=== PATIENT | male | born 1945 | race Caucasian/White ===

== ENCOUNTER 2016-07-28 14:04 | Day surgery (SDC) | payer OTHER ==
--- NOTE | ~2016-07-28 | EGD ---
EGD REPORT [facility] [address] [address] NAME: EVIN BERMAN JUNIOR : [birth year] STATUS : REG [facility] [place] PAT#: [id number] AGE: 71 ADM/REG DATE : 07/28/16 MR#: [id number] REPORT SERV DATE: 07/28/16 DICTATED BY: GEMA SUAREZ DATE: 07/28/16 REPORT STATUS : Draft TRANSCRIBED BY: [facility] DATE: 07/28/16 Endoscopy Center Patient Name: Evin Berman Junior Date of : 1945 Attending MD: GEMA SAUREZ MD Procedure Date No Time: 07/28/2016 Procedure: Upper GI endoscopy Indications: Surveillance procedure, Personal history of malignant esophageal neoplasm Referring MD: SILVANA MORALEZ MD, AYAAN FERNANDEZ III, MD Medicines: Propofol per Anesthesia Complications: No immediate complications. Procedure: Pre-Anesthesia Assessment: - ASA Grade Assessment: III - A patient with severe systemic disease. After obtaining informed consent, the endoscope was passed under direct vision. Throughout the procedure, the patient's blood pressure, pulse, and oxygen saturations were monitored continuously. The GIF H190 [id number] was introduced through the mouth, and advanced to the second part of duodenum. The upper GI endoscopy was accomplished without difficulty. The patient tolerated the procedure well. Findings: An esophago-gastric anastomosis was found at 31 cm from the incisors. The anastomosis is healthy in appearance. Evidence of a gastric pull-up were found in the cardia. The anastomosis was characterized by healthy appearing mucosa and an intact staple line. The examined duodenum was normal. Impression: - An esophago-gastric anastomosis was found. - A gastric pull-up were found, anastomosis characterized by healthy appearing mucosa and an intact staple line. - Normal examined duodenum. Recommendation: - Continue omeprazole. Procedure Code(s): --- Professional --- 24487, Esophagogastroduodenoscopy, flexible, transoral; diagnostic, including collection of specimen(s) by brushing or washing, when performed (separate procedure) Diagnosis Code(s): --- Professional --- EGD REPORT [facility] [address] [address] NAME: EVIN BERMAN JUNIOR : [birth year] STATUS : REG [facility] PAT#: [id number] AGE: 71 ADM/REG DATE : 07/28/16 MR#: [id number] REPORT SERV DATE: 07/28/16 DICTATED BY: GEMA SUAREZ. DATE: 07/28/16 REPORT STATUS : Draft TRANSCRIBED BY: [employer] DATE: 07/28/16 Z98.0, Intestinal bypass and anastomosis status Z85.01, Personal history of malignant neoplasm of esophagus CPT copyright 2013 [employer]. All rights reserved. The codes documented in this report are preliminary and upon auditing coder review may be revised to meet current compliance requirements. GEMA SUAREZ MD 07/28/2016 3:45 PM This report has been signed electronically. Number of Addenda: 0 Note Initiated On: 07/28/2016 3:22 PM Scope Withdrawal Time 0 hours 0 minutes 0 seconds [address] [place] [address]
--- NOTE | ~2016-07-28 | EGD ---
EGD REPORT [facility] [address] [address] NAME: EVIN BERMAN JUNIOR : [birth year] [place] [facility] [place]#: [id number] AGE: 71 ADM/REG DATE : 07/28/16 MR#: [id number] REPORT SERV DATE: 07/28/16 DICTATED BY: GEMA SUAREZ DATE: 07/28/16 REPORT STATUS : Draft TRANSCRIBED BY: [facility] DATE: 07/28/16 Endoscopy Center Patient Name: Evin Berman Junior Date of : 1945 Attending MD: GEMA SUAREZ MD Procedure Date No Time: 07/28/2016 Procedure: Colonoscopy Indications: High risk colon CA surveillance: Personal history multiple (3 or more) adenomas Referring MD: SILVANA MORALEZ MD Medicines: Propofol per Anesthesia Complications: No immediate complications. Procedure: Pre-Anesthesia Assessment: - ASA Grade Assessment: III - A patient with severe systemic disease. After I obtained informed consent, the scope was passed under direct vision. Throughout the procedure, the patient's blood pressure, pulse, and oxygen saturations were monitored continuously. The [facility] [id number] was introduced through the anus and advanced to the cecum, identified by appendiceal orifice and ileocecal valve. The colonoscopy was performed without difficulty. The patient tolerated the procedure well. The quality of the bowel preparation was adequate. Findings: The perianal and digital rectal examinations were normal. Internal hemorrhoids were found during retroflexion and were Grade I (internal hemorrhoids that do not prolapse). The exam was otherwise without abnormality. Impression: - Internal hemorrhoids. - The examination was otherwise normal. Recommendation: - Patient has a contact number available for emergencies. The signs and symptoms of potential delayed complications were discussed with the patient. Return to normal activities tomorrow. Written discharge instructions were provided to the patient. - Regular diet. - Continue present medications. - Repeat colonoscopy in 5 years for surveillance. Procedure Code(s): --- Professional --- 04558, Colonoscopy, flexible, proximal to splenic EGD REPORT [facility] [address] [place] [address] NAME: EVIN BERMAN JUNIOR : [birth year] STATUS : REG [facility]#: [id number] AGE: 71 ADM/REG DATE : 07/28/16 MR#: [id number] REPORT SERV DATE: 07/28/16 DICTATED BY: GEMA SUAREZ. DATE: 07/28/16 REPORT STATUS : Draft TRANSCRIBED BY: [employer] DATE: 07/28/16 flexure; diagnostic, with or without collection of specimen(s) by brushing or washing, with or without colon decompression (separate procedure) Diagnosis Code(s): --- Professional --- K64.0, First degree hemorrhoids Z86.010, Personal history of colonic polyps CPT copyright 2013 [employer]. All rights reserved. The codes documented in this report are preliminary and upon mailing section clerk review may be revised to meet current compliance requirements. GEMA SUAREZ MD 07/28/2016 3:46 PM This report has been signed electronically. Number of Addenda: 0 Note Initiated On: 07/28/2016 3:13 PM Scope Withdrawal Time 0 hours 10 minutes 13 seconds [address] [place] [address]
[~2016-07-28 14:04] MED LIST: ALTA2.5 PO; ASAB PO; COUMADIN4 MG PO; ELIQUIS 5 MG TAB5 MG PO; FLECAINIDE50 MG PO; FLOMAX4 PO; HYCET 7.5 MG-3473 ML PEG; KEPPRA1000 MG PO; LAN125 PO; LOP100 PO; LOP50 PO; LOVENOX1C SC; LOVENOX80 SC; MEVACOR40 MG PO; PACLITAXEL IV; PARAPLATIN IV; PR25 PO; PRILOSEC40 MG PO; SINGULAIR1 PO; TRICOR145 PO; VITE PO; ZOFRAN8 PO
== END 2016-07-28 23:59 | disposition home or self-care (01) ==
LOC: DMU 14:04
PROVIDERS: Internal Medicine Gastroenterology
PROC: 0DJD8ZZ Inspection of Lower Intestinal Tract, Via Natural or Artificial Opening Endoscopic (ICD-10-PCS; principal; 2016-07-28 16:00)
PROC: 0DJ08ZZ Inspection of Upper Intestinal Tract, Via Natural or Artificial Opening Endoscopic (ICD-10-PCS; 2016-07-28 16:00)
DX: Z12.11 Encounter for screening for malignant neoplasm of colon (principal); K64.0 First degree hemorrhoids; I10 Essential (primary) hypertension; Z98.0 Intestinal bypass and anastomosis status; Z85.01 Personal history of malignant neoplasm of esophagus; Z86.010 Personal history of colon polyps; Z86.73 Personal history of transient ischemic attack (TIA), and cerebral infarction without residual deficits
CPT/HCPCS: A9270-GY